=== PATIENT | female | born 1995 | race Two or more races ===

== ENCOUNTER 2021-02-27 10:58 | Emergency (ER) | payer OTHER ==
[~2021-02-27] VITALS: Ht 160 cm; Wt 57.6 kg
[2021-02-27 11:28] VITALS: BP 16/76
== END 2021-02-27 12:53 | disposition home or self-care (01) ==
LOC: ER 10:58
DX: T19.2XXA Foreign body in vulva and vagina, initial encounter (principal); X58.XXXA Exposure to other specified factors, initial encounter; Y93.89 Activity, other specified; Y92.89 Other specified places as the place of occurrence of the external cause; Y99.8 Other external cause status